=== PATIENT | male | born 1970 | race Caucasian/White ===

== ENCOUNTER 2021-12-26 20:50 | Emergency (ER) | payer SELFPAY ==
[2021-12-26 22:27] LABS: BASOPHIL 0.4 % (0-2); EOSINOPHIL 0.8 % (0-5); HCT 38.6 % (42.0-52.0); HGB 12.9 g/dl (13.2-18.0); LYMPHOCYTE 21.6 % (15-48); MCHC 33.4 g/dL (32.0-36.0); MCV 92.8 fL (78.0-100.0); MONOCYTE 9.2 % (0-12); MPV 10.5 fL (6.0-9.5); NEUTROPHIL 67.7 % (41-80); NRBC 0; PLT 172 K/uL (150-400); RBC 4.16 M/uL (4.70-6.00); RDW 12.1 % (11.5-14.0); WBC 10.5 K/uL (4.0-10.5)
[2021-12-26 22:43] LABS: BUN/CREAT RATIO (CALC) 13.8 RATIO; CREATININE 0.87 mg/dL (0.67-1.17); POTASSIUM 3.8 mmol/L (3.5-5.1)
[2021-12-27 02:00] LABS: INR 1.05 (0.9-1.2); PROTHROMBIN TIME 13.1 SECONDS (11.8-13.4); PTT 28.3 SECONDS (24.4-34.7)
[2021-12-27 03:10] LABS: BILIRUBIN NEGATIVE (NEGATIVE); BLOOD NEGATIVE Ery/uL (NEGATIVE); CLARITY CLEAR (CLEAR); COLOR YELLOW (YELLOW); GLUCOSE (U) NORMAL (NORMAL); LEUKOCYTES NEGATIVE Leu/uL (NEGATIVE); NITRITE NEGATIVE (NEGATIVE); PROTEIN NEGATIVE (NEGATIVE); UROBILINOGEN 0.2 mg/dL (0.2-1.0)
[2021-12-27] MEDS ORDERED: PERCOCET 5-3251 EACH PO (05:24)
== END 2021-12-26 23:53 | disposition home or self-care (01) ==
LOC: FER 20:50
PROVIDERS: Internal Medicine
DX: S06.6X0A Traumatic subarachnoid hemorrhage without loss of consciousness, initial encounter (principal); S02.2XXA Fracture of nasal bones, initial encounter for closed fracture; S00.83XA Contusion of other part of head, initial encounter; S00.12XA Contusion of left eyelid and periocular area, initial encounter; S30.1XXA Contusion of abdominal wall, initial encounter; Z88.0 Allergy status to penicillin; W17.89XA Other fall from one level to another, initial encounter; W20.8XXA Other cause of strike by thrown, projected or falling object, initial encounter; Y92.009 Unspecified place in unspecified non-institutional (private) residence as the place of occurrence of the external cause
CPT/HCPCS: 36415; 70450; 70486; 71260; 72125; 72128; 72131; 80048; 81003; 85025; 85610; 85730; G0480; J1170; J7030; Q9967